=== PATIENT | male | born 1970 | race Caucasian/White ===

== ENCOUNTER 2020-02-20 08:22 | Emergency (ER) | payer OTHER, SELFPAY ==
[2020-02-20] VITALS (10 sets, daily range): BP systolic 122–184; BP diastolic 91–102; PULSE 72–89; RESP 12–21; TEMP 36.8; O2SAT 98–100
--- NOTE | ~2020-02-20 | XR_ITS ---
EXAMINATION: XR chest 2V DATE: 02/20/2020 08:40 INDICATION: Left-sided chest pain radiating down the left arm TECHNIQUE: PA and lateral views of the chest were obtained. COMPARISON: None FINDINGS: The lungs are clear with no focal airspace opacities, pulmonary edema, pleural effusion or pneumothor ax. The cardiomediastinal silhouette is normal. Mild thoracic spondylosis. IMPRESSION: 1. No acute cardiopulmonary disease. Reviewed, dictated and finalized at location A.
--- NOTE | ~2020-02-20 | CT_ITS ---
EXAMINATION: CTA BRAIN/CAROTID DATE: 02/20/2020 09:36 INDICATION: Severe headache and vertigo TECHNIQUE: Computed tomographic angiography (CTA) of the head and neck was performed with 100 mL Omni paque-350 intravenous contrast. Multiplanar reconstructions and maximum intensity projection 3D-recon structions of the carotid arteries and of the intracranial arteries were created by the technologist on a separate workstation. Precontrast CT of the head was also obtained. Automated exposure control and iterative reconstruction technique were employed.The dose-length product was 1979.91 mGy-cm. COMPARISON: None. FINDINGS: Carotid arteries: There is mild atherosclerotic plaque with 0% stenosis of the right and left carotid bulbs relative to normal distal artery lumen diameter (NASCET criteria). The visualized bilateral upper lungs are rosanna r. Cervical soft tissues and superior mediastinum are unremarkable. Mild cervical thoracic levocurvat ure with mild spondylosis. Head: No acute intracranial hemorrhage, acute infarction or abnormal extra axial fluid collection. Ventricl es are normal and symmetric. No mass/mass effect. The orbits, paranasal sinuses and mastoid air cells are normal. Intracranial arteries: Small amount of nonhemodynamically significant atherosclerotic plaque at the bilateral carotid siphon s. There is no hemodynamically significant stenosis in the vertebral, basilar and internal carotid ar teries. Vertebral arteries are codominant. There are no aneurysms identified. Both A1 and P1 segment s are patent. Cerebral arterial arborization appears symmetric. IMPRESSION: 1. Small amount of atherosclerotic plaque but with 0% stenosis of the left and right carotid bulbs re lative to normal distal artery lumen diameter (NASCET criteria). 2. No acute intracranial process. 3. Mild atherosclerotic plaque at the bilateral carotid siphons without hemodynamically significant s tenosis. Otherwise unremarkable cerebral CT angiogram. Reviewed, dictated and finalized at location A. IMPRESSION: 1. Small amount of atherosclerotic plaque but with 0% stenosis of the left and right carotid bulbs relative to normal distal artery lumen diameter (NASCET cri teria). 2. No acute intracranial process. 3. Mild atherosclerotic plaque at the bilateral carotid siphons without hemodyn amically significant stenosis. Otherwise unremarkable cerebral CT angiogram.
--- NOTE | 2020-02-20 08:27 | ED.CHESTPAIN ---
HPI - Chest Pain General Chief Complaint: Chest Pain Stated Complaint: chest pain Time Seen by Provider: 02/20/20 08:27 History of Present Illness HPI narrative: Not feeling right for the past few days. Started with a severe JIMÉNEZ about 3 days ago. Sudden onset. Frontal without radiation. Associated with moderate to severe dizziness. Described as more vertigo like than light headedness. Worse with movement of the head. Additionally had pain in the right ear. Developed chest pain yesterda. Mild radiates to left elbow. Admits to being very anxious. He has HTN and hyperlipidemia. Related Data Home Medications Medication Instructions Recorded Confirmed lisinopril 20 mg PO DAILY 02/20/20 pravastatin 40 mg PO DAILY 02/20/20 Allergies Allergy/AdvReac Type Severity Reaction Status Date / Time No Known Allergies Allergy Verified 02/20/20 08:35 Review of Systems Review of Systems: All systems reviewed & are unremarkable except as noted in HPI and below Constitutional: Constitutional: Denies chills, Denies fever(s) and Denies weakness ENT: Denies sore throat Cardiovascular: Cardiovascular: Reports chest pain and Reports radiating jaw, neck or arm pain Respiratory: Respiratory: Denies dyspnea Gastrointestinal: Gastrointestinal: Denies abdominal pain and Denies nausea Musculoskeletal: Musculoskeletal: Denies back pain Neurologic: Reports vertigo and Reports headache(s) Psychiatric: Psychiatric: Reports anxiety PMFSH Past Medical History Medical History (Updated 02/21/20 @ 00:00 by Roberto Cisneros) HTN (hypertension) Hyperlipidemia Social History Social History (Updated 02/20/20 @ 08:43 by Jono Holden MD) Smoking status: Never smoker Exam Const: General: healthy appearing, no acute distress and alert Nutritional Appearance: well nourished Orientation/consciousness: patient oriented x3 HENMT: Head: normal to inspection Eyes: Pupils: Equal, round and reactive pupils present EOM: EOMs intact bilaterally Neck: Neck: normal visual inspection and no lymphadenopathy Chest: Chest palpation & inspection: normal inspection of the chest and no tenderness Resp: Effort & Inspection: normal respiratory effort Auscultation: clear to auscultation bilaterally, no rales, no rhonchi and no wheezes Cardio: Jugular venous distension: no JVD Rate: regular rate Rhythm: regular rhythm Heart sounds: no murmurs GI: Inspection: non-distended GI Palp: Yes Soft to palpation and No Tenderness to palpation present (GI) Skin: General skin exam: normal color Neuro: General: patient oriented x3, moves all extremities, no focal motor deficits and CN's II-XI intact bilaterally Cranial nerves: Yes Nystagmus present horizontal Speech: normal speech Extrem: General: normal to inspection and no edema Psych: Appearance: well kempt Affect: Anxious affect present Course Vital Signs Vital signs: Vital Signs Temperature 36.8 C 02/20/20 08:26 Pulse Rate 85 02/20/20 08:26 Respiratory Rate 18 02/20/20 08:26 Blood Pressure 184/102 H 02/20/20 08:26 Pulse Oximetry 100 02/20/20 08:26 Temperature 36.8 C 02/20/20 08:26 Pulse Rate 80 02/20/20 10:51 Respiratory Rate 16 02/20/20 10:51 Blood Pressure 122/92 H 02/20/20 10:51 Pulse Oximetry 99 02/20/20 10:51 MDM - Chest Pain Medical Records Data Attestation: I reviewed the patient's medical records. Lab Data Attestation: I reviewed the patient's lab results. Result diagrams: 02/20/20 08:36 02/20/20 08:36 Labs: Lab Results 02/20/20 02/20/20 02/20/20 Range/Units 08:36 08:36 08:37 WBC 4.6 (4.5-10.0) K/mm3 RBC 4.37 L (4.6-6.20) M/mm3 Hgb 14.5 (14.0-18.0) g/dL Hct 42.7 (42.0-52.0) % MCV 97.7 (80-100) fl MCH 33.2 (26-34) pg MCHC 34.0 (32-36) g/dl RDW 11.7 (11.5-14.5) % Plt Count 217 (150-375) k/mm3 MPV 9.1 (7.4-10.4) fl Immature Gran % (Auto) 0.2
--- NOTE | 2020-02-20 08:29 | ECG_ITS ---
Measurements Intervals [place] Rate: 87 P: 48 TN: 130 QRS: 48 QRSD: 106 T: 60 QT: 345 QTc: 417 Interpretive Statements SINUS RHYTHM BASELINE ARTIFACT- I, II, III NORMAL ECG Electronically Signed On 02-20-2020 9:02:29 CDT by Everett Long D.O.
[2020-02-20] MEDS: ASPIRIN 81 MG CHEWABLE TABLET 324 MG PO (08:36)
[2020-02-20 08:42] LABS: Basophils Absolute Auto 0.1 K/mm3 (0.0-0.1); Basophils Percent Auto 1.5 % (0.2-1.2); Eosinophils Absolute Auto 0.1 K/mm3 (0-0.3); Hematocrit 42.7 % (42.0-52.0); Hemoglobin 14.5 g/dL (14.0-18.0); Immature Granulocyte Absolute 0.01 K/mm3 (0.00-0.031); Immature Granulocyte Percent A 0.2 % (0-0.5); Lymphocytes Absolute Auto 1.55 K/mm3 (0.9-3.2); Lymphocytes Percent Auto 33.4 % (18.3-44.2); Mean Corpuscular Hemoglobin 33.2 pg (26-34); Mean Corpuscular Volume 97.7 fl (80-100); Mean Platelet Volume 9.1 fl (7.4-10.4); Monocytes Absolute Auto 0.5 K/mm3 (0.1-0.6); Monocytes Percent Auto 11.6 % (2.6-8.5); Neutrophils Absolute Auto 2.3 K/mm3 (1.3-6.7); Neutrophils Percent Auto 50.3 % (45.5-73.1); Platelet Count Result 217 k/mm3 (150-375); Red Blood Count 4.37 M/mm3 (4.6-6.20); Red Cell Distribution Width 11.7 % (11.5-14.5); White Blood Count 4.6 K/mm3 (4.5-10.0)
[2020-02-20] MEDS: MECLIZINE HCL 25 MG TABLET PO (08:42)
[2020-02-20 09:05] LABS: Partial Thromboplastin Time 31.4 SECONDS (22.3-36.8); Prothrombin Time 13.3 Seconds (11.1-14.7)
[2020-02-20 09:07] LABS: Blood Urea Nitrogen 10 mg/dL (9-20); Calcium 9.3 mg/dL (8.4-10.2); Carbon Dioxide 27 mmol/L (22-30); Chloride 99 mmol/L (98-107); Estimated CRCL calculation 111 ml/min; Estimated Glomerular Filt Rate > 60; Glucose 144 mg/dL (75-110); Sodium 136 mmol/L (137-145); Troponin I < 0.012 ng/mL (0.000-0.034)
[2020-02-20] MEDS: METOCLOPRAMIDE HCL INJ 10 MG/2 ML VIAL IV PUSH (10:08)
--- NOTE | 2020-02-20 10:09 | PC.NURSE ---
Reports decrease in dizziness.
== END 2020-02-20 10:53 | disposition home or self-care (01) ==
PROVIDERS: Emergency Provider Emergency Medicine
DX: R42 Dizziness and giddiness (principal); R07.89 Other chest pain; I10 Essential (primary) hypertension; E78.5 Hyperlipidemia, unspecified
CPT/HCPCS: 36415; 70496; 70498; 71046; 80048; 84484; 85025; 85610; 85730; 93005; 96374; 99284; A9270; J2765; Q9967

== ENCOUNTER 2020-10-24 13:16 | Emergency (ER) | payer OTHER, SELFPAY ==
--- NOTE | ~2020-10-24 | CT_ITS ---
EXAMINATION: CT brain wo con EXAM DATE: 10/24/2020 13:53 INDICATION: Elevated blood pressure, dizziness. Headache. TECHNIQUE: Spiral CT of the head was performed without contrast. Axial, coronal and sagittal images were reviewed. The dose-length product (DLP) for this examination was 605.33 mGy-cm. The exposure w as tailored according to patient size, and iterative reconstruction (ASIR) was used as additional dos e reduction technique. There is no prior study for comparison. FINDINGS: There is no acute intraparenchymal hemorrhage. No evidence of intraparenchymal brain mass lesion. No evidence of acute infarction. There is no mass effect or midline shift. The ventricles are normal in size. There are no extra-axial collections. There are no acute calvarial fractures. T he orbits are unremarkable. Soft tissue is unremarkable. The visualized sinuses and mastoid air earl ls are well aerated. IMPRESSION: 1. Unremarkable head CT examination. Reviewed, dictated and finalized at location B. BUNCH TRIMMER
--- NOTE | ~2020-10-24 | XR_ITS ---
EXAMINATION: XR chest 1V DATE: 10/24/2020 13:58 INDICATION: Headache. TECHNIQUE: A single frontal view of the chest was obtained. COMPARISON: Chest 2 views 02/20/2020 FINDINGS: The chest demonstrates clear lungs without pneumonia, pleural effusion, or pneumothorax. Th e heart size is normal. IMPRESSION: 1. No acute cardiopulmonary disease. Reviewed, dictated and finalized at location A. ERCIAL SALES MANAGER
[2020-10-24 13:27] VITALS: BP 179/97; PULSE 81; RESP 18; TEMP 36.7; O2SAT 99
--- NOTE | 2020-10-24 13:41 | ED.DIZZY ---
HPI - Dizziness General Chief Complaint: Dizziness Stated Complaint: High Blood Pressure, Dizzy Time Seen by Provider: 10/24/20 13:34 Source: patient and family Mode of arrival: ambulatory Limitations: no limitations History of Present Illness HPI Narrative: Patient is 49 years old white male presents with sudden onset of shaking all over, headache started around noon today. Patient blood pressure was elevated, on arrival to the emergency room was 179/97, when I went see him in the room was 182/95. History of hypertension, gout and alcohol abuse. Last alcohol intake was yesterday. Patient's reported that patient have a lot of stress lately. Patient denies any nausea, vomiting, chest pain, shortness of breath, back pain. Patient's reported that blood pressure medication was adjusted by his family physician 2 weeks ago, and has been running around 120/70 in the last 2 weeks. Patient drinks alcohol daily. Related Data Home Medications Medication Instructions Recorded Confirmed lisinopril 20 mg PO DAILY 02/20/20 pravastatin 40 mg PO DAILY 02/20/20 allopurinol 100 mg PO DAILY 10/24/20 10/24/20 Allergies Allergy/AdvReac Type Severity Reaction Status Date / Time No Known Allergies Allergy Verified 02/20/20 08:35 Review of Systems Review of Systems: Narrative: General appearance: Well-developed, well-nourished Skin: Normal color Head: Normocephalic, nontraumatic Eyes: Clear conjunctiva ENT: Oropharynx normal, ears normal, nose normal Neck: Supple, nontender Chest and respiratory: Airway patent, no respiratory distress, no accessory muscle use Heart: Regular rate/rhythm Abdomen: Soft, nontender, no organomegaly, quiet bowel sounds Vascular: Normal peripheral pulses, normal capillary refill. Musculoskeletal: Normal range of motion, nontender back Neurologic: Alert and oriented ?3, LABORATORY INSPECTOR is normal as tested, no gross motor deficit PMFSH Past Medical History Medical History HTN (hypertension) Hyperlipidemia Social History Social History Smoking status: Never smoker Exam Narrative: Exam Narrative: General appearance: Well-developed, well-nourished, shaking, restless Skin: Normal color Head: Normocephalic, nontraumatic Eyes: Clear conjunctiva ENT: Oropharynx normal, ears normal, nose normal Neck: Supple, nontender Chest and respiratory: Airway patent, no respiratory distress, no accessory muscle use Heart: Regular rate/rhythm Abdomen: Soft, nontender, no organomegaly, quiet bowel sounds Vascular: Normal peripheral pulses, normal capillary refill. Musculoskeletal: Normal range of motion, nontender back Neurologic: Alert and oriented ?3, LABORATORY INSPECTOR is normal as tested, no gross motor deficit Course Course Emergency Course: Improving Vital Signs Vital signs: Vital Signs Temperature 36.7 C 10/24/20 13:27 Pulse Rate 81 10/24/20 13:27 Respiratory Rate 18 10/24/20 13:27 Blood Pressure 179/97 H 10/24/20 13:27 Pulse Oximetry 99 10/24/20 13:27 Temperature 36.7 C 10/24/20 13:27 Pulse Rate 81 10/24/20 13:27 Respiratory Rate 18 10/24/20 13:27 Blood Pressure 179/97 H 10/24/20 13:27 Pulse Oximetry 99 10/24/20 13:27 MDM - Dizziness MDM Narrative Medical decision making narrative: Patient presents with shaking, headache
--- NOTE | 2020-10-24 13:42 | ECG_ITS ---
Measurements Intervals [place] Rate: 81 P: 35 CT: 135 QRS: 70 QRSD: 100 T: 40 QT: 356 QTc: 414 Interpretive Statements SINUS RHYTHM NORMAL ECG Electronically Signed On 10-24-2020 14:05:43 [place] by Everett Long D.O.
[2020-10-24 13:52] LABS: Basophils Absolute Auto 0.1 K/mm3 (0.0-0.1); Basophils Percent Auto 1.1 % (0.2-1.2); Eosinophils Absolute Auto 0.1 K/mm3 (0-0.3); Eosinophils Percent Auto 1.3 % (0-4.4); Hematocrit 40.3 % (42.0-52.0); Hemoglobin 13.9 g/dL (14.0-18.0); Immature Granulocyte Absolute 0.01 K/mm3 (0.00-0.031); Immature Granulocyte Percent A 0.2 % (0-0.5); Lymphocytes Absolute Auto 0.83 K/mm3 (0.9-3.2); Lymphocytes Percent Auto 18.4 % (18.3-44.2); Mean Corpuscular HGB Conc 34.5 g/dl (32-36); Mean Corpuscular Hemoglobin 33.5 pg (26-34); Mean Corpuscular Volume 97.1 fl (80-100); Mean Platelet Volume 8.5 fl (7.4-10.4); Monocytes Absolute Auto 0.5 K/mm3 (0.1-0.6); Monocytes Percent Auto 11.8 % (2.6-8.5); Neutrophils Percent Auto 67.2 % (45.5-73.1); Platelet Count Result 211 k/mm3 (150-375); Red Blood Count 4.15 M/mm3 (4.6-6.20); Red Cell Distribution Width 11.9 % (11.5-14.5); White Blood Count 4.5 K/mm3 (4.5-10.0)
[2020-10-24] MEDS: LORazepam INJ (*CRX) 2 MG/ML VIAL 1 MG IV PUSH (14:13)
[2020-10-24] MEDS: ASPIRIN 81 MG CHEWABLE TABLET 324 MG PO (14:14)
[2020-10-24 14:16] LABS: Troponin I < 0.012 ng/mL (0.000-0.034)
[2020-10-24 14:51] LABS: Alanine Aminotransferase 44 U/L (4-50); Albumin Level 4.4 g/dL (3.5-5.1); Alkaline Phosphatase 72 U/L (38-126); Anion Gap 11 mmol/L (8-16); Aspartate Amino Transferase 45 U/L (17-59); Bilirubin,Total 0.4 mg/dL (0.2-1.3); Blood Urea Nitrogen 8 mg/dL (9-20); Calcium 9.7 mg/dL (8.4-10.2); Carbon Dioxide 26 mmol/L (22-30); Chloride 100 mmol/L (98-107); Estimated CRCL calculation 125 ml/min; Estimated Glomerular Filt Rate > 60; Glucose 139 mg/dL (75-110); Potassium 4.1 mmol/L (3.4-5.0); Sodium 137 mmol/L (137-145)
[2020-10-24 15:22] LABS: Thyroid Stimulating Hormone 0.409 uIU/mL (0.465-4.680)
[2020-10-24 15:34] VITALS: BP 139/92; PULSE 85; RESP 20; O2SAT 99
[2020-10-28 11:51] LABS: Methyl Alcohol Level None Detected (None Detected)
== END 2020-10-24 15:36 | disposition home or self-care (01) ==
PROVIDERS: Emergency Provider Emergency Medicine; PCP Internal Medicine
DX: F41.9 Anxiety disorder, unspecified (principal); I10 Essential (primary) hypertension; F10.10 Alcohol abuse, uncomplicated; E78.5 Hyperlipidemia, unspecified
CPT/HCPCS: 36415; 70450; 71045; 80053; 84443; 84484; 84600; 85025; 93005; 96374; 99284; A9270; J2060

== ENCOUNTER → 2023-04-23 12:32 | Outpatient (CLI) | payer OTHER, SELFPAY ==
--- NOTE | ~2023-04-23 | MR_ITS ---
EXAMINATION: MR knee LT wo con DATE: 04/23/2023 13:02 INDICATION: Left knee pain TECHNIQUE: Magnetic resonance imaging (MRI) of the left knee was performed without intravenous contra st. Sequences included coronal PD-weighted FSE, coronal PD-weighted FS FSE, sagittal T2-weighted FSE , sagittal PD-weighted FS FSE and axial PD weighted fat saturated FSE. COMPARISON: None. FINDINGS: Medial compartment: Tear at the meniscal insertion of the meniscotibial ligament with truncated appearance to the periphe ral inferior corner of the body of the medial meniscus and mild thickening and increased signal of th e inserting meniscotibial ligament. The remainder of the medial meniscus is normal. Shallow chondral ulceration and fissuring along the anterior weightbearing medial femoral condyle. Remaining cartilage in the medial compartment is normal. Lateral compartment: Lateral meniscus is normal. Articular cartilage is normal. Patellofemoral compartment: Articular cartilage is normal. Ligaments and tendons: Anterior and posterior cruciate ligaments are normal. The fibular collateral ligament complex is norm al. Thickening and increased signal of the anterior aspect of the proximal medial collateral ligament without significant surrounding edema consistent with scarring related to chronic sprain. The extens or mechanism is normal. The visualized medial and lateral hamstring tendons as well as the iliotibial band are normal. Fluid: Physiologic amount of fluid in the joint space. No loose osteochondral bodies identified. Very small Perez's cyst. Osseous/other: There is marrow edema surrounding a nondisplaced fracture line which extends horizontally across the metaphyseal region underlying the majority of the medial tibial plateau, the tibial footplate of the anterior cruciate ligament and anteromedial aspect of the lateral tibial plateau. Additional marrow e hemant without evident fracture line most likely representing a bone contusion at the anterior medial r im of the medial femoral condyle. No pathologic marrow replacing process. IMPRESSION: 1. Nondisplaced incomplete fracture involving the medial metaphysis of the proximal tibia and likely bone contusion without discrete fracture line along the anterior medial rim of the medial femoral con dyle. 2. Partial tear of the anterior margin of the proximal medial collateral ligament as well as at the j unction of the inferior peripheral rim of the medial meniscal body and the meniscotibial ligament. 3. 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 Reviewed, dictated and finalized at location L. IMPRESSION: 1. Nondisplaced incomplete fracture involving the medial metaphysis of the prox imal tibia and likely bone contusion without discrete fracture line along the a nterior medial rim of the medial femoral condyle. 2. Partial tear of the anterior margin of the proximal medial collateral ligame nt as well as at the junction of the inferior peripheral rim of the medial meni scal body and the meniscotibial ligament. 3. 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
== END ==
PROVIDERS: PCP Internal Medicine; Visit Provider Physician Assistant
DX: M17.12 Unilateral primary osteoarthritis, left knee (principal); S89.092A Other physeal fracture of upper end of left tibia, initial encounter for closed fracture; S72.432A Displaced fracture of medial condyle of left femur, initial encounter for closed fracture; X58.XXXA Exposure to other specified factors, initial encounter
CPT/HCPCS: 73721